=== PATIENT | female | born 1975 | race Caucasian/White ===

== ENCOUNTER → 2021-08-25 14:45 | Outpatient (CLI) | payer OTHER, SELFPAY ==
--- NOTE | 2021-08-25 | CA_ITS ---
FINAL REPORT TECHNIQUE: Ultrasound images of the deep venous system were obtained from the left groin to the calf veins. CLINICAL HISTORY: EDEMA AND PAIN X 5 DAYS, FINDINGS: The deep venous system is normally compressible. Normal flow is identified. IMPRESSION: No evidence of left lower extremity DVT. Reviewed, Interpreted and Dictated by Yamil Diana MD Transcribed by Judi Wilkins Authenticated by Yamil Diana MD on 08/25/2021 04:44:37 PM [facility]
== END ==
PROVIDERS: PCP Family Medicine; Visit Provider Orthopaedic Surgery Adult Reconstructive Orthopaedic Surgery
DX: M79.605 Pain in left leg (principal)
CPT/HCPCS: 93971